=== PATIENT | female | born 1955 | race Caucasian/White ===

== ENCOUNTER → 2021-04-25 | Outpatient (CLI) | payer OTHER | LOC: HEART 5 04-23 10:00 | DX: R00.2 Palpitations (principal); I51.7 Cardiomegaly | CPT/HCPCS: 93306 ==

== ENCOUNTER → 2021-05-30 | Outpatient (CLI) | payer OTHER | LOC: HEART 5 08:39 | DX: I20.9 Angina pectoris, unspecified (principal) | CPT/HCPCS: 78452; A9502; J2785 ==

== ENCOUNTER → 2021-06-04 | Outpatient (CLI) | payer OTHER | LOC: HEART 5 10:10 | DX: R06.02 Shortness of breath (principal); I20.9 Angina pectoris, unspecified; I48.0 Paroxysmal atrial fibrillation; Z79.899 Other long term (current) drug therapy | CPT/HCPCS: 94010; 94729 ==

== ENCOUNTER 2021-09-01 13:30 | Emergency (ER) | payer OTHER ==
[2021-09-01] MEDS ORDERED: AMOX TR-K CLV1 EAC4 PO (16:21)
== END 2021-09-01 16:40 | disposition home or self-care (01) ==
LOC: ER1 13:30
DX: S61.552A Open bite of left wrist, initial encounter (principal); L03.114 Cellulitis of left upper limb; F17.200 Nicotine dependence, unspecified, uncomplicated; I10 Essential (primary) hypertension; F17.210 Nicotine dependence, cigarettes, uncomplicated; Z23 Encounter for immunization; Z91.040 Latex allergy status; Z91.041 Radiographic dye allergy status; Z88.5 Allergy status to narcotic agent; Z95.5 Presence of coronary angioplasty implant and graft; W55.01XA Bitten by cat, initial encounter
CPT/HCPCS: 73110; 90471; 90715; 99283

== ENCOUNTER → 2021-09-25 | Outpatient (CLI) | payer OTHER ==
[~2021-09-25] MED LIST: AMOX TR-K CLV1 EAC4 PO; CRESTOR40 MG PO; CYMBALTA30 MG PO; CYMBALTA60 MG PO; ELIQUIS 5 MG TAB5 MG PO; HYDROCODON-ACE1 EAC2 PO; KLONOPIN TAB 00.5 MG PO; LOPRESSOR 25 MG25 MG PO; NARCAN4 MG; NEURONTIN 100100 MG PO; NITROSTAT 0.4100 TAB SL; OMEGA-31000 MG PO; PACERONE200 MG PO; ZESTRIL20 MG PO
[2021-09-25 10:59] LABS: HEMOGLOBIN 15.2 gm/dl (12.3-15.3); RED BLOOD COUNT 5.23 M/UL (4.00-5.10); WHITE BLOOD COUNT 6.5 K/UL (4.5-11.0)
[2021-09-25 15:00] LABS: BUN/CREATININE RATIO 17 (0-10)
== END ==
LOC: LAB 10:33
PROVIDERS: Internal Medicine Cardiovascular Disease
DX: I48.0 Paroxysmal atrial fibrillation (principal); I48.92 Unspecified atrial flutter
CPT/HCPCS: 36415; 71046; 80048; 85025

== ENCOUNTER 2021-09-27 10:10 | Outpatient (CLI) | payer OTHER ==
[~2021-09-27] VITALS: Ht 162.6 cm; Wt 93.4 kg
[~2021-09-27 10:10] MED LIST changes: -CRESTOR40 MG PO; -CYMBALTA30 MG PO; -CYMBALTA60 MG PO; -ELIQUIS 5 MG TAB5 MG PO; -HYDROCODON-ACE1 EAC2 PO; -KLONOPIN TAB 00.5 MG PO; -LOPRESSOR 25 MG25 MG PO; -NARCAN4 MG; -NEURONTIN 100100 MG PO; -NITROSTAT 0.4100 TAB SL; -OMEGA-31000 MG PO; -PACERONE200 MG PO; -ZESTRIL20 MG PO
[2021-09-27] MEDS ORDERED: PACERONE200 MG PO (11:10)
[2021-09-27] MEDS ORDERED: KLONOPIN TAB 00.5 MG PO (11:11)
[2021-09-27] MEDS ORDERED: CYMBALTA30 MG PO (11:12)
[2021-09-27] MEDS ORDERED: CYMBALTA60 MG PO (11:13)
[2021-09-27] MEDS ORDERED: NEURONTIN 100100 MG PO (11:14)
[2021-09-27] MEDS ORDERED: ELIQUIS 5 MG TAB5 MG PO (11:14)
[2021-09-27] MEDS ORDERED: HYDROCODON-ACE1 EAC2 PO (11:16)
[2021-09-27] MEDS ORDERED: ZESTRIL20 MG PO (11:17)
[2021-09-27] MEDS ORDERED: LOPRESSOR 25 MG25 MG PO (11:18)
[2021-09-27] MEDS ORDERED: NARCAN4 MG (11:19)
[2021-09-27] MEDS ORDERED: NITROSTAT 0.4100 TAB SL (11:19)
[2021-09-27] MEDS ORDERED: OMEGA-31000 MG PO (11:20)
[2021-09-27] MEDS ORDERED: CRESTOR40 MG PO (11:21)
== END 2021-09-28 10:10 | disposition home or self-care (01) ==
LOC: CATH 10:10 → PROG CARE 15:36 → CATH 09-28 10:10
DX: I48.92 Unspecified atrial flutter (principal); I48.0 Paroxysmal atrial fibrillation; I10 Essential (primary) hypertension; I25.10 Atherosclerotic heart disease of native coronary artery without angina pectoris; E78.5 Hyperlipidemia, unspecified; K21.9 Gastro-esophageal reflux disease without esophagitis; M17.10 Unilateral primary osteoarthritis, unspecified knee; F41.9 Anxiety disorder, unspecified; F32.A Depression, unspecified; F17.210 Nicotine dependence, cigarettes, uncomplicated; Z79.01 Long term (current) use of anticoagulants; Z79.899 Other long term (current) drug therapy; Z88.5 Allergy status to narcotic agent; Z88.8 Allergy status to other drugs, medicaments and biological substances; Z91.040 Latex allergy status; Z91.041 Radiographic dye allergy status
CPT/HCPCS: 93005; 93609; 93620; 93621; 93623; 99152; 99153; C1730; C1733; C1766; J0360; J1644; J1742; J2250; J3010; J7040